=== PATIENT | male | born 1995 | race Hispanic/Latino ===

== ENCOUNTER 2017-09-25 04:45 | Emergency (ER) | payer OTHER, SELFPAY ==
[2017-09-25 04:54] VITALS: BP 112/74; PULSE 61; RESP 16; TEMP 36.5; O2SAT 100; BMI 25.8
--- NOTE | 2017-09-25 05:06 | ED_ITS ---
HPI - Wound/Laceration General Chief Complaint: Wound/Laceration Stated Complaint: Right forehead laceration, hit head Time Seen by Provider: 09/25/17 04:47 Source: patient Mode of arrival: ambulatory Limitations: no limitations History of Present Illness HPI narrative: Otherwise healthy 21-year-old male here for evaluation of laceration to the right side of his forehead near his right eye. Patient states that he jumped into his bed and instead of hitting his pillow hit the right side of his face on his night stand. No loss of consciousness. Is up-to- date on tetanus. Related Data Home Medications Medication Instructions Recorded Confirmed No Known Home Medications 09/25/17 09/25/17 Allergies Allergy/AdvReac Type Severity Reaction Status Date / Time Penicillins Allergy Verified 09/25/17 05:05 Review of Systems Constitutional Denies fever(s) and Denies headache(s) Eyes Denies blurry vision, Denies change in vision, Denies diplopia and Denies eye pain ENT Ears, Nose, Mouth, and Throat: Denies vertigo, Denies dizziness and Denies headache(s) Comments: Laceration right side of forehead Integumentary/Breasts Comments: Laceration right-sided forehead Neurologic Denies confusion, Denies vertigo, Denies dizziness and Denies headache(s) Psychiatric Denies confusion [facility] Medical History Healthy adult (Acute) Surgical History No pertinent past surgical history (Acute) Exam Initial Vital Signs Initial Vital Signs: Vital Signs Temperature 97.7 F 09/25/17 04:54 Pulse Rate 61 09/25/17 04:54 Respiratory Rate 16 09/25/17 04:54 Blood Pressure 112/74 09/25/17 04:54 Pulse Oximetry 100 09/25/17 04:54 HENMT Head: normocephalic and other (1 cm cut just lateral to the right eyebrow.) Eyes Pupils: PERRL EOM: EOM intact bilaterally Skin Other: 1 cm laceration just lateral to the right eyebrow Neuro General: alert, awake and oriented x3 Cognition: normal cognition Speech: speech normal Extrem General: normal to inspection and capillary refill normal Psych Appearance: grossly normal and well kempt Procedures Laceration Repair Laceration 1: Site: face Side (If applicable): right Size (cm): 1 Description: linear Depth: simple, single layer Local Anesthetic: lidocaine 1% Amount of anesthesia used (mL): 2 Pre-repair: wound explored and irrigated extensively Skin layer closed with: other (Chromic) Size (cm): 5-0 Number of sutures: 4 Technique: simple, interrupted Course Vital Signs - 8 hr 09/25/17 04:54 Temperature 97.7 F Pulse Rate 61 Respiratory Rate 16 Blood Pressure 112/74 Pulse Oximetry 100 MDM - Wound/Laceration MDM Narrative Medical decision making narrative: Superficial laceration requiring 4 stitches as described above. No underlying structures damaged. Patient was given care instructions and return precautions. Discharge Plan Departure Patient Disposition: Home, Self-Care Clinical Impression: Laceration Instructions: DI for Laceration Repair -- Simple Activity Restrictions/Additional Instructions: The stitches will come out on their own however if they are still there in 7 days they do need to be removed. This can be done by your medical department. Keep it bandaged as best as possible. After 24 hr you can shower like normal. You can use soap and water. Do not scrub the area. Return to the emergency department for any new or worsening symptoms Prescriptions: No Action No Known Home Medications RF: 0
== END 2017-09-25 05:08 | disposition home or self-care (01) ==
LOC: ED 05:20
PROVIDERS: Emergency Provider Emergency Medicine
DX: S01.81XA Laceration without foreign body of other part of head, initial encounter (principal); W22.09XA Striking against other stationary object, initial encounter
CPT/HCPCS: 12001; 12011; 99282; 99283